=== PATIENT | female | born 1980 | race Caucasian/White ===

== ENCOUNTER 2018-04-29 13:28 | Emergency (ER) | payer OTHER ==
[2018-04-29 13:51] VITALS: BMI 28.3
--- NOTE | 2018-04-29 16:11 | PDOC ---
History of Present Illness - General Chief Complaint: Pain Stated Complaint: ABD PAIN Time Seen by Provider: 04/29/18 14:03 - History of Present Illness Initial Comments: 04/29/18 19:07 37 year old A0 history of R inguinal hernia presents with bilateral lower abdominal pain for for 4 days rated 10/10 now 7-8/10, 3x episodes LNMP 01/27/18 Patient has irregular periods, no history of STDs, Grounds Maintenance Manager: [id number] Past History - Past Medical History Allergies/Adverse Reactions: Allergies Allergy/AdvReac Type Severity Reaction Status Date / Time No Known Allergies Allergy Verified 04/29/18 13:48 Home Medications: Ambulatory Orders NK [No Known Home Medication] 04/29/18 Anemia: No Asthma: No COPD: No Diabetes: No GI Disorders: Yes (gallstones) HTN: No - Surgical History Abdominal Surgery: Yes () - Reproductive History Is Patient Now?: Yes Cervical CA: No Dysfunctional Uterine Bleeding: No Ectopic : No Endometrial CA: No Polycystic Ovaries: No Therapeutic (s) & number: No Tubal Ligation: No - Suicide/Smoking/Psychosocial Hx Smoking Status: No Smoking History: Never smoked Have you smoked in the past 12 months: No Number of Cigarettes Smoked Daily: 0 Information on smoking cessation initiated: No Hx Alcohol Use: No Drug/Substance Use Hx: No Substance Use Type: None *Physical Exam - Vital Signs Last Vital Signs Temp Pulse Resp BP Pulse Ox 98.6 F 76 18 109/66 96 04/29/18 13:40 04/29/18 13:40 04/29/18 13:40 04/29/18 13:40 04/29/18 13:40 ED Treatment Course - LABORATORY CBC & Chemistry Diagram: 04/29/18 16:00 04/29/18 16:00 Medical Decision Making - Medical Decision Making 04/29/18 19:06 US; IUP 11 weeks 1 day *DC/Admit/Observation/Transfer Diagnosis at time of Disposition: Abdominal pain, Constipation - Discharge Dispostion Disposition: HOME Decision to Admit order: No - Referrals - Patient Instructions Printed Discharge Instructions: DI for Abdominal Pain-Adult, DI for Abdominal Pain -- Early Additional Instructions: You were seen in the ED for complaints of abdominal pain. In the ED you were evaluated with labwork and imaging. Your results showed an intrauterine aged 11 weeks and 1 day, but without any other abnormal laboratory findings. There does not appear to be an acute need for immediate hospitalization. You are advised to follow up with your primary care physician and BLAST FURNACE TENDER within 1 week. Return to the ED immediately if you experience worsening abdominal pain, nausea , vomiting, diarrhea, constipation, vaginal bleeding or discharge or any fevers. Usted fue visto en el servicio de urgencias por quejas de dolor abdominal. En el servicio de urgencias se le evalu con trabajo de laboratorio e imgenes. Mamie resultados mostraron un embarazo intrauterino de 11 semanas y 1 da, ariane sin ningn otro hallazgo anormal de laboratorio. No parece chantel rupinder necesidad aguda de hospitalizacin inmediata. Se le recomienda que ericka un seguimiento con arboleda mdico de atencin primaria y un obstetra / gineclogo dentro de rupinder semana. Regrese a la petey de urgencias de inmediato si experimenta un empeoramiento del dolor abdominal, nuseas, vmitos, diarrea, estreimiento, sangrado o flujo vaginal o fiebre. - Post Discharge Activity
[2018-04-29] MEDS ORDERED: SODIUM CHLORIDE 1,000 ML IV SCH (16:15)
--- NOTE | 2018-04-29 16:25 | PDOC ---
Attending Attestation - Resident Resident Name: Ivy Lawler - ED Attending Attestation I have performed the following: I have examined & evaluated the patient, The case was reviewed & discussed with the resident, I agree w/resident's findings & plan, Exceptions are as noted - HPI HPI: 04/29/18 16:16 Patient is a 37 year old female, ~16 weeks with no significant past medical history who presents to the ED with complaints of lower abdomen pain that began earlier today. Pt ntose an episode of LLQ pain lasting approx 3 hrs on saturday, resolving until this morning around 12:30 when th pain returned, it was associated with several episodes of vomiting. Pt notes th pain is much improved currently. denies any fever/chills. pt does note that she has had difficult having BM since starting iron in april. Denies chest pain, Sob. Denies fevers ,chills. Denies contact with sick individuals, out of state travelling. Denies vaginal discharge, vaginal bleeding. Denies trauma to affected area. Denies dysuria, hematuria. Denies any other symptoms. Allergies: None Social history: No smoking. No alcohol. No illicit drugs. Surgical history: None PMD: None - Physicial Exam PE: 04/29/18 19:37 abd soft, gravid abdomen, mild llq ttp, no rebound/guarding, no massess, nocva tenerness - Medical Decision Making 04/29/18 18:55 = 04/29/18 19:37 ddx - constipation, uti, kidney stone, torsion, no bloo don urine labs unremarkble US neg for torsion, baby at 11 weeks abd us unremakble pt currently feels improved, tolerating oral intake will dc with pmd fu
[2018-04-29 16:34] LABS: BASO % 0.8 % (0-2.0); EOS % 0.2 % (0-4.5); HEMATOCRIT 39.8 % (32.4-45.2); HEMOGLOBIN 13.9 GM/dL (10.7-15.3); MCH 29.9 pg (25.7-33.7); MCHC 34.8 g/dl (32.0-36.0); MEAN CELL VOLUME 85.7 fl (80-96); MEAN PLT VOLUME 8.6 fl (7.5-11.1); MONO % 3.8 % (3.8-10.2); NEUT % 84.2 % (42.8-82.8); PLATELET COUNT 227 K/MM3 (134-434); RBC 4.64 M/mm3 (3.60-5.2); RDW 12.9 % (11.6-15.6); WHITE BLOOD COUNT 11.9 K/mm3 (4.0-10.0)
[2018-04-29 17:17] LABS: ALBUMIN 3.4 g/dl (3.4-5.0); ALK PHOS 66 U/L (45-117); ANION GAP 10 MMOL/L (8-16); BILIRUBIN,TOTAL 0.5 mg/dL (0.2-1); BLOOD UREA NITROGEN 7 mg/dL (7-18); CALCIUM 9.3 mg/dL (8.5-10.1); CHLORIDE 106 mmol/L (98-107); CO2 20 mmol/L (21-32); CREATININE 0.4 mg/dL (0.55-1.3); GLUCOSE,RANDOM 91 mg/dL (74-106); POTASSIUM 4.1 mmol/L (3.5-5.1); SGOT/AST 34 U/L (15-37); SGPT/ALT 21 U/L (13-61); SODIUM 137 mmol/L (136-145); TOT PROT 7.6 g/dl (6.4-8.2)
[2018-04-29 17:28] LABS: URINE APPEARANCE CLOUDY; URINE BILIRUBIN NEGATIVE (<2.0 mg/dL); URINE COLOR YELLOW; URINE GLUCOSE (UA) NEGATIVE (NEGATIVE); URINE KETONE TRACE (NEGATIVE); URINE LEUK ESTERASE TRACE (NEGATIVE); URINE NITRITE NEGATIVE (NEGATIVE); URINE PROTEIN NEGATIVE (NEGATIVE); URINE UROBILINOGEN NEGATIVE mg/dL (0.2-1.0)
[2018-04-29 17:31] LABS: EPI CELLS RARE /HPF (FEW); URINE BACTERIA RARE /hpf (NONE SEEN); URINE MUCUS RARE
[2018-04-29 18:55] VITALS: BP 97/66; PULSE 66; TEMP 97.6
== END 2018-04-29 19:59 | disposition home or self-care (01) ==
LOC: JER 13:28
DX: O99.89 Other specified diseases and conditions complicating pregnancy, childbirth and the puerperium (principal); K59.00 Constipation, unspecified; Z3A.11 11 weeks gestation of pregnancy
CPT/HCPCS: 36415; 76700-TC; 76815-TC; 80053; 81003; 81015; 84702; 85025; 87086; 87186; 99283-25; J7030

== ENCOUNTER 2018-11-11 07:05 | Inpatient (IN) | payer OTHER ==
[~2018-11-11 07:05] MED LIST: ELECTROLYTE-148 SOLN 1,000 ML IV ONE
[2018-11-11 07:46] VITALS: BMI 33.5
[2018-11-11] MEDS ORDERED: CITRIC ACID/SODIUM CITRATE 30 ML UNIT-DOSE CUP PO ONE (07:46)
--- NOTE | 2018-11-11 07:52 | HP ---
Past Medical History - Primary Care Physician PCP:: Balwinder Hill - Admission Chief Complaint: 39 weeks, previous c/s , AMA,requeat of repeat c/s and BTL History of Present Illness: 38 yof 39 weeks, with previous c/s unkwon type, erequesting repeat c/s and BTL, procedure risks has explained topatient, aware BTL is permenant and not reversiable , has failure risks and risks of ectopic History Source: Patient Limitations to Obtaining History: Language Barrier - Past Medical History ...: 4 ...Para: 3 ...Term: 3 ...: 0 ...Spon : 0 ...Induced : 0 ...Multiple Gestation: 0 ...LMP: 01/27/18 ... Weeks Gestation by Dates: 41.1 ...EDC by Dates: 11/03/18 ...EDC by Sono: 11/15/18 - Past Surgical History Past Surgical History: Yes: Hx Myomectomy: No Hx Transabdominal Cerclage: No - Smoking History Smoking history: Never smoked Have you smoked in the past 12 months: No Aproximately how many cigarettes per day: 0 - Alcohol/Substance Use Hx Alcohol Use: No - Social History Usual Living Arrangement: Yes: With Spouse ADL: Independent History of Recent Travel: No Home Medications - Allergies Allergies/Adverse Reactions: Allergies Allergy/AdvReac Type Severity Reaction Status Date / Time No Known Allergies Allergy Verified 11/11/18 07:21 - Home Medications Home Medications: Ambulatory Orders Vits96/Iron Fum/Folic [ Tablet] 1 each PO DAILY 11/11/18 Review of Systems - Review of Systems Constitutional: reports: No Symptoms Eyes: reports: No Symptoms HENT: reports: No Symptoms Neck: reports: No Symptoms Cardiovascular: reports: No Symptoms Respiratory: reports: No Symptoms Gastrointestinal: reports: No Symptoms Genitourinary: reports: No Symptoms Breasts: reports: No Symptoms Reported Musculoskeletal: reports: No Symptoms, Muscle Cramps Neurological: reports: No Symptoms Endocrine: reports: No Symptoms Hematology/Lymphatic: reports: No Symptoms Psychiatric: reports: No Symptoms Physical Exam - Maternity Vital Signs: Vital Signs Temperature 97.7 F 11/11/18 07:30 Pulse Rate 62 11/11/18 07:30 Respiratory Rate 18 04/30/19 07:30 Blood Pressure 119/74 11/11/18 07:30 O2 Sat by Pulse Oximetry (%) Constitutional: Yes: Well Nourished, No Distress, Calm Eyes: Yes: WNL, Conjunctiva Clear, EOM Intact HENT: Yes: WNL, Atraumatic, Normocephalic Neck: Yes: WNL, Supple, Trachea Midline Cardiovascular: Yes: WNL, Regular Rate and Rhythm Breast(s): Yes: WNL - Abdominal Exam/OB Fundal Height: 38 Number of Fetuses: Single Presentation: Vertex Contractions: No Regularity: Irritability Intensity: Unaware Monitor Mode: External Heart Rate [facility]: [facility] Category: I Accelerations: Uniform Decelerations: None - Vaginal Exam/OB Vaginal Bleediing: No Speculum Exam: No Dilatation (cm): 0 Effacement (%): 0 Amniotic Membrane Status: Intact Presentation: Vertex/Position Station: -3 - Physical Exam Musculoskeletal: Yes: WNL Edema: Yes Edema: LLE: Trace, RLE: Trace Deep Tendon Reflex Grade: Normal +2 ...Motor Strength: WNL Psychiatric: Yes: WNL Hemorrhage Risk Assessment - Risk Factors Medium Risk Factors: Yes: None High Risk Factors: Yes: None Risk Score: 1 Risk Level: Medium Risk Problem List - Problems (1) with 39 completed weeks gestation Code(s): Z3A.39 - 39 WEEKS GESTATION OF (2) Previous section complicating Code(s): O34.219 - MATERNAL CARE FOR UNSP TYPE SCAR FROM PREVIOUS DEL (3) Advanced maternal age (AMA) in Code(s): QLG1839 - (4) Admission for sterilization Code(s): Z30.2 - ENCOUNTER FOR STERILIZATION Assessment/Plan repeat c/s, BTL risks discussed
[2018-11-11] MEDS ORDERED: ELECTROLYTE-148 SOLN 1,000 ML IV SCH (08:00)
[2018-11-11] MEDS ORDERED: OXYTOCIN 20 UNITS in 0.9% NS 40 UNIT/2,000 ML INFUS.BAG IV ONE (09:00)
[2018-11-11] MEDS ORDERED: morphine SULFATE/Preservative Free 0.5 MG/ML (1cc Syringe) ONE (09:19)
[2018-11-11] MEDS ORDERED: ceFAZolin SODIUM 1 GM VIAL ONE ×2 (09:30)
[2018-11-11] MEDS ORDERED: ONDANSETRON 4 MG/2 ML VIAL IVPUSH PRN (09:34)
[2018-11-11] MEDS ORDERED: KETOROLAC TROMETHAMINE 30 MG/1 ML VIAL ONE ×2 (10:27→11:55)
[2018-11-11] MEDS ORDERED: BENZOCAINE 28 GM HEMORRHOIDAL OINTMENT PR PRN (10:33)
[2018-11-11] MEDS ORDERED: WITCH HAZEL 50% (TUCKS) 40 PAD/JAR PAD TP PRN (10:33)
[2018-11-11] MEDS ORDERED: METHYLERGONOVINE MALEATE 0.2 MG/1 ML AMP IM PRN (10:33)
[2018-11-11] MEDS ORDERED: BENZOCAINE 20% 57 GM BOTTLE TP PRN (10:33)
[2018-11-11] MEDS ORDERED: IBUPROFEN 800 MG/8 ML IJ IVPB PRN (10:33)
[2018-11-11] MEDS ORDERED: diphenhydrAMINE HCL 25 MG CAPSULE (FP) PO PRN (10:33)
[2018-11-11] MEDS ORDERED: IBUPROFEN 600 MG TABLET (FP) PO PRN (10:33)
[2018-11-11] MEDS ORDERED: DEXTROSE 5%-LACTATED RINGERS 1,000 ML IV SCH (10:45)
[2018-11-11] MEDS ORDERED: OXYTOCIN 20 UNITS in 0.9% NS 20 UNIT/1,000 ML INFUS.BAG IV SCH (10:45)
--- NOTE | 2018-11-11 11:34 | OP ---
DATE OF OPERATION: 11/11/2018 PREOPERATIVE DIAGNOSIS: , 39 weeks, 3 previous sections, request of repeat section and tubal ligation. POSTOPERATIVE DIAGNOSIS: , 39 weeks, 3 previous sections, request of repeat section and tubal ligation, pelvic adhesion. SURGEON: Dago Hill MD PROCESS STRIPPER: RUPERTO Gardner ANESTHESIA: Spinal. ANESTHESIOLOGIST: Carson Donis MD ESTIMATED BLOOD LOSS: 500 mL. FINDING: Live baby, Apgars 9 and 9. OPERATION: The patient was taken to the operating room, had adequate spinal anesthesia. Abdomen and perineum were prepped and draped. Pfannenstiel abdominal skin incision was made. Abdominal wall was cut layer by layer until the peritoneum was exposed. The peritoneum had adhesions into the lower uterine segment of the uterus. These adhesions were lysed and lower uterine segment was identified. Then, a low transverse uterine incision was made. Amniotic sac was entered. Clear fluid, head delivered, nasopharynx was suctioned, and live baby was delivered without any difficulty. 9 and 9. Placenta was delivered manually. Uterine cavity was cleaned of all remaining tissue. Uterine incision was closed using 2 layers, 1st layer with 0 Biosyn continuous suture, the 2nd layer with 0 Biosyn imbricating the 1st layer. Bladder flap was closed with 0 Biosyn continuous suture. Both tubes and ovaries were checked, were normal. Then, right tube was grasped with [place] clamp. Right tube was doubly tied with 2-0 plain, portion of the tube was removed, and endosalpinx was cauterized. The same procedure was repeated for opposite tube. Visualization of both tubes showed no active bleeding. Then, pelvic cavity several times irrigated. No bleeding was seen. All the lap pad, sponge, and instrument counts were correct. Then, peritoneum was closed with 0 Biosyn continuous suture, muscles were brought together with interrupted sutures of 0 Biosyn, fascia was closed with 0 Biosyn continuous suture, subcutaneous fat with 3-0 Vicryl, and the skin was closed with 4-0 Biosyn subcuticular continuous suture. Patient tolerated the procedure well, left the OR in good condition. DAGO HILL M.D. [id number]
[2018-11-11] MEDS ORDERED: IBUPROFEN 800 MG/8 ML IJ IVPB ONE (11:55)
[2018-11-11] MEDS ORDERED: DEXAMETHASONE SOD PHOSPHATE 4 MG/1 ML VIAL ONE (11:55)
[2018-11-11] MEDS ORDERED: LIDOCAINE HCL/PF 2% SDV 5ML VIAL ONE (11:55)
[2018-11-11] MEDS ORDERED: OXYTOCIN 20 UNITS in 0.9% NS 20 UNIT/1,000 ML INFUS.BAG IV ONE (11:55)
[2018-11-11] MEDS ORDERED: ROCURONIUM BROMIDE 50 MG/5 ML VIAL ONE (11:56)
[2018-11-11] MEDS ORDERED: PROPOFOL 20 ML ONE ×2 (11:56)
[2018-11-11] MEDS ORDERED: fentaNYL CITRATE 250 MCG/5 ML VIAL ONE (11:56)
[2018-11-11] MEDS: OXYTOCIN 20 UNITS in 0.9% NS 20 UNIT/1,000 ML INFUS.BAG IV SCH ×2 (12:24→21:40)
--- NOTE | 2018-11-11 12:37 | SURG ---
Surgery Outdoor Studies Professor Note Outdoor Studies Professor: Ju Oscar PA-C (Suzy) Date of Service: 11/11/18 Diagnosis: 39 weeks, 3 previous sections, request of repeat and tubal ligation Procedure: section, bilateral tubal ligation I was present for the entirety of the operative procedure. For further detail, please refer to operative report.
[2018-11-11] MEDS: CEFAZOLIN 1 GM/D5W 1 GM/50 ML BAG IVPB SCH (17:58)
[2018-11-12] MEDS: CEFAZOLIN 1 GM/D5W 1 GM/50 ML BAG IVPB SCH (02:15)
[2018-11-12] MEDS: SIMETHICONE 80 MG TAB.CHEW (FP) PO PRN ×4 (05:30→20:56)
[2018-11-12] MEDS: oxyCODONE HCL 5 MG TABLET PO PRN ×4 (05:30→20:57)
[2018-11-12] MEDS: ACETAMINOPHEN 325 MG TABLET (FP) PO PRN ×3 (05:30→17:37)
[2018-11-12] MEDS: IBUPROFEN 600 MG TABLET (FP) PO PRN ×2 (05:30→20:56)
[2018-11-12 08:08] LABS: BASO % 0.5 % (0-2.0); EOS % 0.2 % (0-4.5); HEMATOCRIT 28.6 % (32.4-45.2); HEMOGLOBIN 9.9 GM/dL (10.7-15.3); LYMPH % 10.5 % (8-40); MCH 30.6 pg (25.7-33.7); MCHC 34.5 g/dl (32.0-36.0); MEAN CELL VOLUME 88.6 fl (80-96); MEAN PLT VOLUME 9.2 fl (7.5-11.1); MONO % 5.9 % (3.8-10.2); NEUT % 82.9 % (42.8-82.8); PLATELET COUNT 150 K/MM3 (134-434); RBC 3.23 M/mm3 (3.60-5.2); RDW 13.9 % (11.6-15.6); WHITE BLOOD COUNT 11.6 K/mm3 (4.0-10.0)
--- NOTE | 2018-11-12 08:27 | PN ---
Progress Note (short form) - Note Progress Note: pod 1 , s/p repest c?s , btl no c/o , no excess vaginal bleeding Last Vital Signs Temp Pulse Resp BP Pulse Ox 98.8 F 85 20 129/75 100 11/12/18 06:00 11/12/18 06:00 11/12/18 07:00 11/12/18 06:00 11/11/18 12:30 abdomen soft, no distension, no cvs incision dry, intact no calf tenderness no excess vaginal bleeding impression POD ,afebrile, asymptomatic plan ambulate , advance diet cbc pain management Problem List - Problems (1) with 39 completed weeks gestation Code(s): Z3A.39 - 39 WEEKS GESTATION OF (2) Previous section complicating Code(s): O34.219 - MATERNAL CARE FOR UNSP TYPE SCAR FROM PREVIOUS DEL (3) Advanced maternal age (AMA) in Code(s): [id number] - (4) Admission for sterilization Code(s): Z30.2 - ENCOUNTER FOR STERILIZATION
[2018-11-12] MEDS: ENOXAPARIN NA (PORCINE) 40 MG/0.4 ML DISP.SYRIN SQ SCH (09:28)
[2018-11-12] MEDS ORDERED: BISACODYL 10 MG SUPP.RECT PR PRN (10:33)
--- NOTE | 2018-11-12 15:11 | PN ---
Progress Note (short form) - Note Progress Note: Anesthesia postop note POD#1, S/P and BTL under spinal. VSS. Ambulating. Intact neurologically. Receiving blood for anemia, dizzy when getting OOB. No apparent post anesthesia complications. Continued care as per primary team.
--- NOTE | 2018-11-12 15:26 | PN ---
Progress Note (short form) - Note Progress Note: Please disregard previous note, dictated on wrong patient. Anesthesia post op note S/P C section and BTL under spinal. POD#1 VSS. Neurologically intact. No apparent post anesthesia complications.
[2018-11-13] MEDS: oxyCODONE HCL 5 MG TABLET PO PRN ×3 (08:27→23:00)
[2018-11-13] MEDS: SIMETHICONE 80 MG TAB.CHEW (FP) PO PRN ×2 (08:28→22:59)
[2018-11-13] MEDS: ACETAMINOPHEN 325 MG TABLET (FP) PO PRN ×3 (08:28→23:00)
[2018-11-13] MEDS: ENOXAPARIN NA (PORCINE) 40 MG/0.4 ML DISP.SYRIN SQ SCH (10:58)
--- NOTE | 2018-11-13 20:27 | PN ---
Post Progress Note - Subjective Subjective: 38 yo Para 4 status post repeat , seen and evaluated. Doing well. Post Day: 2 Type of Delivery: Repeat C/S Vital Signs: Vital Signs Temperature 98.2 F 11/13/18 18:00 Pulse Rate 79 11/13/18 18:00 Respiratory Rate 20 11/13/18 18:00 Blood Pressure 114/59 L 11/13/18 18:00 O2 Sat by Pulse Oximetry (%) 100 11/11/18 12:30 Breast Exam: Yes: Soft Uterus: Yes: Fundus Firm Incision: Yes: Dressing dry and intact Abdomen/GI: Yes: Abdomen soft, Tolerating PO Lochia: Yes: Rubra Lochia, amount: Small Extremities: Yes: Calves non-tender Activity: Ambulating - Labs Labs: CBC WBC 11.6 K/mm3 (4.0-10.0) H 11/12/18 07:12 RBC 3.23 M/mm3 (3.60-5.2) L 11/12/18 07:12 Hgb 9.9 GM/dL (10.7-15.3) L 11/12/18 07:12 Hct 28.6 % (32.4-45.2) L D 11/12/18 07:12 MCV 88.6 fl (80-96) 11/12/18 07:12 MCH 30.6 pg (25.7-33.7) 11/12/18 07:12 MCHC 34.5 g/dl (32.0-36.0) 11/12/18 07:12 RDW 13.9 % (11.6-15.6) 11/12/18 07:12 Plt Count 150 K/MM3 (134-434) 11/12/18 07:12 MPV 9.2 fl (7.5-11.1) 11/12/18 07:12 Absolute Neuts (auto) 9.6 K/mm3 (1.5-8.0) H 11/12/18 07:12 Neutrophils % 82.9 % (42.8-82.8) H D 11/12/18 07:12 Lymphocytes % 10.5 % (8-40) D 11/12/18 07:12 Monocytes % 5.9 % (3.8-10.2) 11/12/18 07:12 Eosinophils % 0.2 % (0-4.5) D 11/12/18 07:12 Basophils % 0.5 % (0-2.0) 11/12/18 07:12 Nucleated RBC % 0 % (0-0) 11/12/18 07:12 Problem List - Problems (1) Status post repeat low transverse section Code(s): Z98.891 - HISTORY OF UTERINE SCAR FROM PREVIOUS SURGERY Assessment/Plan Status post repeat Stable Continue routine post op care
[2018-11-13] MEDS: SENNOSIDES/DOCUSATE COMBO (SENNA PLUS) TABLET (UD) PO PRN (22:59)
[2018-11-13] MEDS: IBUPROFEN 600 MG TABLET (FP) PO PRN (23:00)
--- NOTE | 2018-11-14 07:39 | PN ---
Progress Note (short form) - Note Progress Note: pod 3 doing well, ambulating, voids ok abdomen soft, no distension, no cva uterus firm, lochia mild no calf tenderness plan ambulate , cbc today d/c home in am Problem List - Problems (1) with 39 completed weeks gestation Code(s): Z3A.39 - 39 WEEKS GESTATION OF (2) Previous section complicating Code(s): O34.219 - MATERNAL CARE FOR UNSP TYPE SCAR FROM PREVIOUS DEL (3) Advanced maternal age (AMA) in Code(s): [id number] - (4) Admission for sterilization Code(s): Z30.2 - ENCOUNTER FOR STERILIZATION
[2018-11-14] MEDS: SIMETHICONE 80 MG TAB.CHEW (FP) PO PRN ×3 (07:57→20:25)
[2018-11-14] MEDS: oxyCODONE HCL 5 MG TABLET PO PRN (07:58)
[2018-11-14] MEDS: ACETAMINOPHEN 325 MG TABLET (FP) PO PRN ×3 (07:59→20:25)
[2018-11-14 08:23] LABS: EOS % 2.2 % (0-4.5); HEMATOCRIT 28.7 % (32.4-45.2); HEMOGLOBIN 9.9 GM/dL (10.7-15.3); LYMPH % 25.8 % (8-40); MCHC 34.4 g/dl (32.0-36.0); MEAN CELL VOLUME 90.2 fl (80-96); MEAN PLT VOLUME 9.1 fl (7.5-11.1); MONO % 7.7 % (3.8-10.2); NEUT % 63.3 % (42.8-82.8); PLATELET COUNT 164 K/MM3 (134-434); RBC 3.18 M/mm3 (3.60-5.2); RDW 14.4 % (11.6-15.6); WHITE BLOOD COUNT 7.3 K/mm3 (4.0-10.0)
[2018-11-14] MEDS: ENOXAPARIN NA (PORCINE) 40 MG/0.4 ML DISP.SYRIN SQ SCH (09:19)
[2018-11-14] MEDS: IBUPROFEN 600 MG TABLET (FP) PO PRN ×2 (14:26→20:25)
[2018-11-14] MEDS: SENNOSIDES/DOCUSATE COMBO (SENNA PLUS) TABLET (UD) PO PRN (20:26)
--- NOTE | 2018-11-15 07:55 | DS ---
Physical Exam-GUEST SERVICES ASSOCIATE Vital Signs: Vital Signs Temperature 98.0 F 11/14/18 22:00 Pulse Rate 77 11/14/18 22:00 Respiratory Rate 18 11/14/18 22:00 Blood Pressure 124/75 11/14/18 22:00 O2 Sat by Pulse Oximetry (%) 100 11/11/18 12:30 Constitutional: Yes: Well Nourished, No Distress, Calm Eyes: Yes: WNL, Conjunctiva Clear, EOM Intact HENT: Yes: WNL, Atraumatic, Normocephalic Neck: Yes: WNL, Supple, Trachea Midline Cardiovascular: Yes: WNL, Regular Rate and Rhythm Respiratory: Yes: WNL, Regular, CTA Bilaterally Gastrointestinal: Yes: WNL ...Rectal Exam: Yes: WNL Renal/: Yes: WNL ....Post : Yes: Uterus firm, Uterus non-tender, Slight lochia rubra Breast(s): Yes: WNL Musculoskeletal: Yes: WNL Extremities: Yes: WNL Edema: No Integumentary: Yes: WNL Neurological: Yes: WNL, Alert, Oriented ...Motor Strength: WNL Psychiatric: Yes: WNL, Alert, Oriented Labs: CBC, BMP 11/14/18 07:30 Delivery - Delivery Section: Repeat, Low Flap Transverse Type of Anesthesia: Spinal Episiotomy/Laceration: None EBL (cc): 500 Delivery, Single - Stages of Labor Date of Delivery: 11/11/18 Time of Delivery: 09:47 Time Placenta Delivered: 09:48 Placenta: Yes: Expressed - Condition of Infant Behavioral Intervention Specialist/Metallurgy Laboratory Technician Present: Yes Name: Laureen Roque Gender: Female Weight: 7 lb 7 oz Position: Right, OT Total Hours ROM (Hrs/Mins): 0/2 - 1 Minute Total Score: 9 5 Minutes Total Score: 9 - [place] Feeding Plan Initial Plan: Elected not to breastfeed exclusively throughout hospitalization Discharge Summary Reason For Visit: C SECTION Current Active Problems Admission for sterilization (Acute) Advanced maternal age (AMA) in (Acute) with 39 completed weeks gestation (Acute) Previous section complicating (Acute) Status post repeat low transverse section (Acute) Other Procedures: BTL Hospital Course: repeat c/s Condition: Good - Instructions Diet, Activity, Other Instructions: regular diet, follow up [facility] care 1 week, if fever, pain, heavy vaginal bleeding call MD Referrals: Balwinder Hill MD [Staff Physician] - Disposition: HOME - Home Medications Comprehensive Discharge Medication List: Ambulatory Orders Vits96/Iron Fum/Folic [ Tablet] 1 each PO DAILY 11/11/18 Ibuprofen [Motrin -] 600 mg PO QID #28 tablet 11/13/18
[2018-11-15] MEDS: ENOXAPARIN NA (PORCINE) 40 MG/0.4 ML DISP.SYRIN SQ SCH (09:53)
[2018-11-15] MEDS: SIMETHICONE 80 MG TAB.CHEW (FP) PO PRN (09:58)
[2018-11-15] MEDS: ACETAMINOPHEN 325 MG TABLET (FP) PO PRN (09:58)
[2018-11-15] MEDS: IBUPROFEN 600 MG TABLET (FP) PO PRN (09:59)
[2018-11-15 11:13] VITALS: BP 111/71; PULSE 65; TEMP 98.2
--- NOTE | 2018-11-17 11:42 | PATH ---
Surgical Pathology Report Patient Name: BOSSMAN MÉNDEZ [facility]. Rec. #: [id number] /Age/Gender: 1980 (Age: 38) / F Account: [id number] Location: [facility] OBS/IRIDOLOGIST Taken: 11/11/2018 Received: 11/12/2018 Reported: 11/17/2018 Physicians: Balwinder Hill M.D. Specimen(s) Received A: PLACENTA B: PORTION OF LEFT FALLOPIAN TUBE C: PORTION OF RIGHT FALLOPIAN TUBE Clinical History 39.3 weeks, previous x3, AMA, positive GBS, request of repeat and BTL Final Diagnosis A. PLACENTA: THIRD TRIMESTER PLACENTA. TRIVASCULAR CORD. MEMBRANES WITH NO DIAGNOSTIC ABNORMALITIES. B. LEFT PORTION OF FALLOPIAN TUBE, RESECTION: COMPLETE CROSS SECTION OF THE FALLOPIAN TUBE IDENTIFIED. C. RIGHT PORTION OF FALLOPIAN TUBE, RESECTION: COMPLETE CROSS SECTION OF THE FALLOPIAN TUBE IDENTIFIED. Electronically Signed Frankie Arreola M.D. Gross Description A. The specimen is received fresh labeled placenta and is a 451 gram, 16.5 x 16.0 x 2.3 cm. placenta with attached membranes and umbilical cord. The attached membranes are lambert, thick, cloudy and insert marginally. The umbilical cord measures 39 cm. in length and averages 1.2 cm. in diameter. The cord inserts eccentrically, 3 cm. to the nearest margin. No true knots or strictures are identified. Cut surface of the umbilical cord reveals 3 vessels. The surface is neal-blue with minimal fibrin deposition and appropriate caliber vessels. The maternal surface is red-brown with focal defects. Sectioning reveals red-brown, spongy parenchyma. No lesions are identified. Chemical Production Engineer sections are submitted in three cassettes as follows: 1- membrane rolls and umbilical cord; 2-3- full thickness sections of placenta. B. Received in formalin labeled "portion of left fallopian tube," is a 1.4 cm in length portion of fallopian tube. No fimbria are present. The outer surface is lambert neal and smooth. Sectioning reveals an unremarkable lumen. Chemical Production Engineer sections are submitted in one cassette. C. Received in formalin labeled "portion of right fallopian tube," is a 1.5 cm in length portion of fallopian tube. No fimbria are present. The outer surface is lambert neal and smooth. Sectioning reveals an unremarkable lumen. Chemical Production Engineer sections are submitted in one cassette. [facility]/13/[facility]
== END 2018-11-15 14:10 | disposition home or self-care (01) | DRG 540 ==
LOC: JLDR 07:05 → J3W 12:48
PROVIDERS: ADMIT Obstetrics & Gynecology; ATTEND Obstetrics & Gynecology
PROC: 10D00Z1 Extraction of Products of Conception, Low, Open Approach (ICD-10-PCS; principal; 2018-11-11)
PROC: 0U570ZZ Destruction of Bilateral Fallopian Tubes, Open Approach (ICD-10-PCS; 2018-11-11)
PROC: 0DNW0ZZ Release Peritoneum, Open Approach (ICD-10-PCS; 2018-11-11)
DX: O34.219 Maternal care for unspecified type scar from previous cesarean delivery (principal); O99.89 Other specified diseases and conditions complicating pregnancy, childbirth and the puerperium; N73.6 Female pelvic peritoneal adhesions (postinfective); Z3A.39 39 weeks gestation of pregnancy; Z37.0 Single live birth; Z30.2 Encounter for sterilization
CPT/HCPCS: 36415; 85025; 88302-TC; 88307-TC

== ENCOUNTER 2018-11-30 19:51 | Emergency (ER) | payer OTHER ==
[2018-11-30 20:08] VITALS: BMI 31.5
[2018-11-30] MEDS ORDERED: METOCLOPRAMIDE HCL INJECTION 10 MG/2 ML VIAL IVPB ONE (20:27)
[2018-11-30] MEDS ORDERED: SODIUM CHLORIDE 0.9% 1000 ML INFUS.BAG IV ONE (20:27)
[2018-11-30] MEDS ORDERED: ACETAMINOPHEN 1000 MG/100 ML VIAL (NON FORMULARY) IVPB ONE (20:27)
[2018-11-30] MEDS ORDERED: METOCLOPRAMIDE HCL INJECTION 10 MG/2 ML VIAL ONE (20:54)
[2018-11-30] MEDS ORDERED: ACETAMINOPHEN INJECTION 100 ML IVPB ONE (20:54)
--- NOTE | 2018-11-30 21:29 | PDOC ---
History of Present Illness - General Chief Complaint: Pain Stated Complaint: FEVER Time Seen by Provider: 11/30/18 20:18 History Source: Patient Exam Limitations: No Limitations - History of Present Illness Initial Comments: 11/30/18 21:26 38F with no PMH who presents with 1.5 days of fever, headache, nausea, and myalgias. Pt denies any sick contacts, stiff neck, CP, SOB, dysuria, and cough. She has not taken any medications but admits to getting her flu shot. Past History - Past Medical History Allergies/Adverse Reactions: Allergies Allergy/AdvReac Type Severity Reaction Status Date / Time No Known Allergies Allergy Verified 11/30/18 20:02 Home Medications: Ambulatory Orders Vits96/Iron Fum/Folic [ Tablet] 1 each PO DAILY 11/11/18 Ibuprofen [Motrin -] 600 mg PO QID #28 tablet 11/13/18 Anemia: No Asthma: No Cancer: No Cardiac Disorders: No COPD: No Diabetes: No GI Disorders: Yes (gallstones) HTN: No Seizures: No Thyroid Disease: No - Surgical History Abdominal Surgery: Yes () - Reproductive History Cervical CA: No Dysfunctional Uterine Bleeding: No Ectopic : No Endometrial CA: No Polycystic Ovaries: No Therapeutic (s) & number: No Tubal Ligation: No - Suicide/Smoking/Psychosocial Hx Smoking Status: No Smoking History: Never smoked Have you smoked in the past 12 months: No Number of Cigarettes Smoked Daily: 0 Hx Alcohol Use: No Drug/Substance Use Hx: No Substance Use Type: None Hx Substance Use Treatment: No Review of Systems - Review of Systems Able to Perform ROS?: Yes Comments:: 11/30/18 21:28 GENERAL/CONSTITUTIONAL: + for fever. No chills. No weakness. HEAD, EYES, EARS, NOSE AND THROAT: No change in vision. No ear pain or discharge. No sore throat. CARDIOVASCULAR: No chest pain, palpitations, or lightheadedness. RESPIRATORY: No cough, wheezing, shortness of breath, or hemoptysis. GASTROINTESTINAL: + for nausea. No vomiting, diarrhea, constipation, or abdominal pain. GENITOURINARY: No dysuria, frequency, hematuria, or change in urination. MUSCULOSKELETAL: + for myalgias. No neck or back pain. SKIN: No rash or lesions. NEUROLOGIC: + for h/a. No numbness, tingling, focal weakness, loss of consciousness, or change in strength/sensation. Is the patient limited Urdu proficient: No *Physical Exam - Vital Signs Last Vital Signs Temp Pulse Resp BP Pulse Ox 101.5 F H 105 H 20 115/83 100 11/30/18 20:02 11/30/18 20:02 11/30/18 20:02 11/30/18 20:02 11/30/18 20:02 - Physical Exam Comments: 11/30/18 21:29 GENERAL: Well developed, well nourished. Awake and alert. No acute distress. Warm to touch. HEENT: Normocephalic, atraumatic. Hearing grossly normal. Moist mucous membranes. PERRLA, EOMI. No conjunctival pallor. Sclera are non-icteric. NECK: Supple. Full ROM. No JVD. CARDIOVASCULAR: Regular rate and rhythm. No murmurs, rubs, or gallops. PULMONARY: No evidence of respiratory distress. Lungs clear to auscultation bilaterally. No wheezing, rales or rhonchi. ABDOMINAL: Soft. Non-tender. Non-distended. No rebound or guarding. GENITOURINARY: No CVA tenderness bilaterally. MUSCULOSKELETAL: Normal range of motion at all joints. No bony deformities or tenderness. EXTREMITIES: No cyanosis. No clubbing. No edema. No calf tenderness or swelling. SKIN: Warm and dry. Normal capillary refill. No rashes. No jaundice. NEUROLOGICAL: Alert, awake, appropriate. Cranial nerves 2-12 grossly intact. Normal speech. Gait is normal without ataxia. PSYCHIATRIC: Cooperative. Good eye contact. Appropriate mood and affect. ED Treatment Course - LABORATORY CBC & Chemistry Diagram: 11/30/18 21:19 11/30/18 21:19 Medical Decision Making - Medical Decision Making 11/30/18 21:48 38F who presents with 1.5 days of fever, myalgias, and headache, likely a viral syndrome. Will order labs and fluids and reassess. 11/30/18 22:48 Labs WNL. Influenza negative. UA negative. Pending rest of fluids. Pt states she feels better. Will PO challenge and reassess. 11/30/18 23:37 Pt states she feels much better. Passed PO challenge. Will d/c with PCP f/u. *DC/Admit/Observation/Transfer Diagnosis at time of Disposition: Viral syndrome - Discharge Dispostion Disposition: HOME Condition at time of disposition: Stable Decision to Admit order: No - Referrals - Patient Instructions Printed Discharge Instructions: DI for Common Cold Additional Instructions: Your ER visit is not complete until your follow up with your primary care physician. Please follow up with your primary care physician in 1-2 days. Please return to the ER if you have any signs or symptoms of chest pain, shortness of breath, uncontrollable fever, chills, nausea, vomiting, numbness, tingling, or weakness in any part of your body, changes in vision, or slurred speech. Please return to the ER if symptoms persist, worsen, or new symptoms arise. Arboleda visita a la petey de emergencias no est completa hasta arboleda seguimiento con arboleda mdico de atencin primaria. Por favor ericka un seguimiento con arboleda mdico de atencin primaria en 1-2 dong. Regrese a la petey de emergencias si tiene signos o sntomas de dolor en el pecho , dificultad para respirar, fiebre incontrolable, escalofros, nuseas, vmitos , entumecimiento, hormigueo o debilidad en alguna parte de arboleda cuerpo, cambios en la visin o dificultad para hablar. Regrese a la petey de emergencias si los sntomas persisten, empeoran o surgen nuevos sntomas. Print Language: [id number] - Post Discharge Activity
[2018-11-30 21:35] LABS: BASO % 0.9 % (0-2.0); EOS % 3.4 % (0-4.5); HEMOGLOBIN 12.8 GM/dL (10.7-15.3); MCH 29.9 pg (25.7-33.7); MCHC 33.7 g/dl (32.0-36.0); MEAN CELL VOLUME 88.6 fl (80-96); MEAN PLT VOLUME 8.6 fl (7.5-11.1); MONO % 6.5 % (3.8-10.2); NEUT % 74.2 % (42.8-82.8); PLATELET COUNT 245 K/MM3 (134-434); RBC 4.29 M/mm3 (3.60-5.2); RDW 13.6 % (11.6-15.6); WHITE BLOOD COUNT 11.1 K/mm3 (4.0-10.0)
[2018-11-30 21:53] LABS: URINE APPEARANCE CLEAR; URINE BILIRUBIN NEGATIVE (NEGATIVE); URINE COLOR YELLOW; URINE GLUCOSE (UA) NEGATIVE (NEGATIVE); URINE KETONE NEGATIVE (NEGATIVE); URINE LEUK ESTERASE 1+ (NEGATIVE); URINE NITRITE NEGATIVE (NEGATIVE); URINE PROTEIN NEGATIVE (NEGATIVE); URINE UROBILINOGEN 0.2 mg/dL (0.2-1.0)
[2018-11-30 21:59] LABS: ALBUMIN 3.3 g/dl (3.4-5.0); BILIRUBIN,TOTAL 0.5 mg/dL (0.2-1); CALCIUM 8.9 mg/dL (8.5-10.1); CREATININE 0.5 mg/dL (0.55-1.3); POTASSIUM 4.1 mmol/L (3.5-5.1); TOT PROT 7.4 g/dl (6.4-8.2)
[2018-11-30 22:06] LABS: EPI CELLS FEW /HPF (0-5/HPF); URINE RBC 0-2 /hpf (0-4); URINE WBC 0-2 /hpf (0-5)
[2018-11-30 22:07] LABS: URINE BACTERIA RARE /hpf (NEGATIVE)
--- NOTE | 2018-11-30 23:41 | PDOC ---
Documentation entered by Deann Borges SCRIBE, acting as scribe for Cheli Calero MD. Cheli Calero MD: This documentation has been prepared by the Katerina martínez Nirvannie, SCRIBE, under my direction and personally reviewed by me in its entirety. I confirm that the documentation accurately reflects all work, treatment, procedures, and medical decision making performed by me. Attending Attestation - Resident Resident Name: Kurtis Araiza - ED Attending Attestation I have performed the following: I have examined & evaluated the patient, The case was reviewed & discussed with the resident, I agree w/resident's findings & plan - HPI HPI: 11/30/18 21:01 The patient is a 38 year old female, with no significant past medical history, who presents to the emergency department with, 2 days of fever, chills, and diffuse myalgias. Patient notes recently giving via 11/11. She denies recent nausea, vomit, diarrhea or constipation. She denies recent dysuria, frequency, urgency or hematuria. She denies recent chest pain or shortness of breath. Allergies: NKDA - Physicial Exam PE: 11/30/18 21:01 GENERAL: Well-appearing, well-nourished. No apparent distress. HEENT: Normocephalic, atraumatic. PERRL, EOM intact. CARDIOVASCULAR: +Tachycardic. PULMONARY: Clear to auscultation bilaterally. ABDOMEN: Well-healing scar. Soft, non-distended, non-tender. EXTREMITIES: Normal ROM in all four extremities. No gross deformities. SKIN: Warm, dry. No rash NEUROLOGICAL: No focal neurological deficits. - Medical Decision Making 11/30/18 22:58 this 38 yo female p/w body aches,fever .Benign abd exam,well healed c section incision labs reviewed urine wnl negative flu swab 11/30/18 23:37 Fever,viral syndrome Instructions to return to emergency dept for any worsening symptoms
[2018-11-30 23:50] VITALS: BP 105/77; PULSE 78; TEMP 98.6
== END 2018-11-30 23:50 | disposition home or self-care (01) ==
LOC: JER 19:51
PROC: 3E033NZ Introduction of Analgesics, Hypnotics, Sedatives into Peripheral Vein, Percutaneous Approach (ICD-10-PCS; principal; 2018-11-30)
PROC: 3E033GC Introduction of Other Therapeutic Substance into Peripheral Vein, Percutaneous Approach (ICD-10-PCS; 2018-11-30)
DX: B34.9 Viral infection, unspecified (principal)
CPT/HCPCS: 36415; 80053; 81003; 85025; 87804; 96374; 96375; 99283-25; J0131; J7030

== ENCOUNTER 2024-10-24 02:19 | Inpatient (IN) | payer OTHER ==
[2024-10-24] MEDS ORDERED: ACETAMINOPHEN INJECTION 100 ML ONE ×2 (02:54→08:32)
[2024-10-24] MEDS ORDERED: METOCLOPRAMIDE HCL INJECTION 10 MG/2 ML VIAL ONE (02:55)
[2024-10-24 03:16] LABS: ABSOLUTE IMMATURE GRANULOCYTES 0.03 x10^3/uL (0.0-0.031); BASOPHILS # 0.04 x10^3/uL (0.01-0.08); HEMATOCRIT 36.9 % (34.1-44.9); HEMOGLOBIN 12.7 g/dL (11.2-15.7); MCHC 34.4 g/dl (32.2-35.5); MEAN PLT VOLUME 10.3 fl (9.4-12.3); MONOCYTE # 0.12 x10^3/uL (0.24-0.86); MONOCYTE % 1.2 % (4.7-12.5); PLATELET COUNT 147 x10^3/uL (182-369); RDW 12.3 % (12.2-17.1)
[2024-10-24 03:33] LABS: POTASSIUM 3.7 mmol/L (3.5-5.1)
[2024-10-24 03:36] LABS: ALBUMIN 3.3 g/dl (3.4-5.0); BLOOD UREA NITROGEN 13.1 mg/dL (7-18)
[2024-10-24] MEDS: ACETAMINOPHEN 1000 MG/100 ML BAG IVPB ONE ×2 (03:37→08:38)
[2024-10-24] MEDS: SODIUM CHLORIDE 0.9% 500 ML INFUS.BAG IV ONE (03:38)
[2024-10-24] MEDS: METOCLOPRAMIDE HCL INJECTION 10 MG/2 ML VIAL IVPB ONE (03:38)
[2024-10-24 03:39] LABS: CREATININE 0.7 mg/dL (0.55-1.3)
[2024-10-24 03:40] LABS: BILIRUBIN,TOTAL 1.1 mg/dL (0.2-1); TOT PROT 7.1 g/dl (6.4-8.2)
[2024-10-24] MEDS ORDERED: KETOROLAC TROMETHAMINE 15 MG/ML VIAL ONE (03:51)
[2024-10-24] MEDS: KETOROLAC TROMETHAMINE 15 MG/ML VIAL IVPUSH ONE (03:53)
[2024-10-24] MEDS: LACTATED RINGERS SOLUTION 1000 ML INFUS.BAG IV ONE ×4 (04:54→09:36)
[2024-10-24 05:15] LABS: EPI CELLS 23 /uL (0-25.1); HYALINE CASTS 1 /uL (0-3.1); PH,URINE 5.5 (5.0-8.0); URINE APPEARANCE CLOUDY; URINE BACTERIA >9,000 /uL (0-1359); URINE BILIRUBIN NEGATIVE (NEGATIVE); URINE COLOR YELLOW; URINE GLUCOSE (UA) NEGATIVE (NEGATIVE); URINE KETONE NEGATIVE (NEGATIVE); URINE LEUK ESTERASE 1+ (NEGATIVE); URINE NITRITE POSITIVE (NEGATIVE); URINE PROTEIN 2+ (NEGATIVE); URINE UROBILINOGEN 0.2 mg/dL (0.2-1.0); URINE WBC 495 /uL (0-25.8)
[2024-10-24] MEDS ORDERED: CEFTRIAXONE 1 G/50 ML PREMIX 50 ML IVPB ONE (05:55)
[2024-10-24 08:38] LABS: URINE RBC 77 /uL (0-23.9)
[2024-10-24] MEDS: SODIUM CHLORIDE 1,000 ML IV SCH (12:27)
[2024-10-24 17:12] VITALS: BMI 31.6
[2024-10-24] MEDS: HEPARIN NA (PORCINE) 5,000 UNITS/ML 1ML VIAL SQ SCH (21:14)
[2024-10-25 08:07] LABS: ABSOLUTE IMMATURE GRANULOCYTES 0.06 x10^3/uL (0.0-0.031); BASOPHILS # 0.04 x10^3/uL (0.01-0.08); EOSINOPHIL % 1.8 % (0.7-5.8); EOSINOPHILS # 0.13 x10^3/uL (0.04-0.36); HEMATOCRIT 33.9 % (34.1-44.9); MCHC 32.4 g/dl (32.2-35.5); MEAN CELL VOLUME 89.9 fl (79.4-94.8); MONOCYTE # 0.84 x10^3/uL (0.24-0.86); MONOCYTE % 11.5 % (4.7-12.5); PLATELET COUNT 127 x10^3/uL (182-369); RDW 12.6 % (12.2-17.1)
[2024-10-25 08:08] LABS: POTASSIUM 3.6 mmol/L (3.5-5.1)
[2024-10-25 08:10] LABS: CALCIUM 8.1 mg/dL (8.5-10.1)
[2024-10-25 08:11] LABS: BLOOD UREA NITROGEN 7.6 mg/dL (7-18)
[2024-10-25 08:12] LABS: ALBUMIN 2.5 g/dl (3.4-5.0)
[2024-10-25 08:14] LABS: CREATININE 0.6 mg/dL (0.55-1.3)
[2024-10-25 08:15] LABS: BILIRUBIN,TOTAL 0.3 mg/dL (0.2-1); TOT PROT 5.4 g/dl (6.4-8.2)
[2024-10-25] MEDS: CEFTRIAXONE 1 G/50 ML PREMIX 50 ML IVPB SCH (09:18)
[2024-10-26 07:10] LABS: HEMATOCRIT 34.4 % (34.1-44.9); HEMOGLOBIN 11.5 g/dL (11.2-15.7); MCHC 33.4 g/dl (32.2-35.5); MEAN CELL VOLUME 88.2 fl (79.4-94.8); PLATELET COUNT 162 x10^3/uL (182-369); RDW 12.6 % (12.2-17.1)
[2024-10-26 07:40] LABS: POTASSIUM 3.8 mmol/L (3.5-5.1)
[2024-10-26 07:41] LABS: CALCIUM 8.3 mg/dL (8.5-10.1)
[2024-10-26 07:42] LABS: BLOOD UREA NITROGEN 8.9 mg/dL (7-18); MAGNESIUM 2.1 mg/dL (1.8-2.4)
[2024-10-26 07:45] LABS: CREATININE 0.6 mg/dL (0.55-1.3)
[2024-10-26] MEDS: CEFTRIAXONE 1 G/50 ML PREMIX 50 ML IVPB SCH (09:22)
[2024-10-26 16:23] VITALS: BP 107/68; PULSE 62; RESP 20; TEMP 97.7
== END 2024-10-26 15:21 | disposition home or self-care (01) | DRG 720 ==
LOC: JER 02:19 → JERBED 09:16 → J4W 16:11
PROVIDERS: ADMIT Internal Medicine; ATTEND Student in an Organized Health Care Education/Training Program
DX: A41.9 Sepsis, unspecified organism (principal); E11.51 Type 2 diabetes mellitus with diabetic peripheral angiopathy without gangrene; I95.9 Hypotension, unspecified; N13.30 Unspecified hydronephrosis; E78.5 Hyperlipidemia, unspecified; I10 Essential (primary) hypertension; N12 Tubulo-interstitial nephritis, not specified as acute or chronic; N39.0 Urinary tract infection, site not specified; R00.0 Tachycardia, unspecified; R50.9 Fever, unspecified
CPT/HCPCS: 0241U-QW; 36415; 71046-TC-FY; 74176-TC; 80048; 80053; 81003; 83690; 83735; 84484; 84703; 85025; 85027; 87040; 87086; 87186; 93005; 93010; 99285-25; J0131; J1644